=== PATIENT | female | born 1985 | race Caucasian/White ===

== ENCOUNTER 2019-07-06 10:31 | Emergency (ER) | payer OTHER, SELFPAY ==
[2019-07-06 11:24] LABS: Urine Blood NEGATIVE (NEG); Urine Glucose NEGATIVE (NEG); Urine Protein NEGATIVE (NEG)
[2019-07-06 11:46] LABS: Absolute Lymphocytes (CBC) 0.4 K/uL (0.7-4.9); Basophils % 0.3 % (0-1.3); Hematocrit 41.8 % (36.0-45.0); Lymphocytes % 3.9 % (15.3-44.8); MPV 10.3 fL (7.6-11.3); RBC Red Blood Cell Count 4.68 M/uL (3.86-4.86)
[2019-07-06 11:56] LABS: ALT/SGPT 18 U/L (12-78); AST/SGOT 9 U/L (15-37); Albumin 3.8 g/dL (3.4-5.0); Alkaline Phosphatase 81 U/L (45-117); BUN Blood Urea Nitrogen 16 mg/dL (7-18); Bicarbonate 25 mmol/L (21-32); Bilirubin Total 0.8 mg/dL (0.2-1.0); Glucose Level 100 mg/dL (74-106); Lipase 67 U/L (73-393); Potassium 3.8 mmol/L (3.5-5.1); Protein, Total 7.4 g/dL (6.4-8.2); Sodium Level 138 mmol/L (136-145)
[2019-07-06 12:01] LABS: Urine Bacteria 20-50 /HPF (<20); Urine Culture Reflex Order REFLEXED; Urine RBC NONE SEEN /HPF (NONE SEEN)
--- NOTE | 2019-07-06 12:06 | RAD REPORT ---
EXAM DESCRIPTION: US - Abdomen Exam Limited - 07/06/2019 11:57 am CLINICAL HISTORY: RUQ pain COMPARISON: No comparisons FINDINGS: The gallbladder demonstrates no gallstones. No pericholecystic fluid or gallbladder wall t hickening. The common bile duct is normal measuring 3 mm. The liver demonstrates no findings of intrahepatic biliary dilatation. IMPRESSION: Unremarkable examination.
--- NOTE | 2019-07-06 12:24 | ER ---
Nurse's Notes [facility] Name: Kristyn Michael Age: 34 yrs Sex: Female : 1985 Arrival Date: 07/06/2019 Time: 10:33 Bed 8 Private MD: Diagnosis: Acute cystitis without hematuria;Unspecified abdominal pain Presentation: 07/06 10:37 Risk Assessment: Do you want to hurt yourself or someone else? Patient reports no tw2 desire to harm self or others. Care prior to arrival: None. 10:42 Transition of care: patient was not received from another setting of care. Onset of tw2 symptoms was July 06, 2019. Initial Sepsis Screen: Does the patient meet any 2 criteria? No. Patient's initial sepsis screen is negative. Does the patient have a suspected source of infection? No. Patient's initial sepsis screen is negative. 10:42 Method Of Arrival: Ambulatory tw2 10:43 Presenting complaint: Patient states: upper abd pain, nausea, loose stool started this iw morning at 0400, no vomiting. 10:43 Acuity: YASMANI 3 iw Triage Assessment: 10:42 General: Appears in no apparent distress. Behavior is calm, cooperative, appropriate tw2 for age. Pain: Complains of pain in abdomen. GI: Reports lower abdominal pain, upper abdominal pain. CLINICAL SYSTEMS ANALYST: 10:44 LMP N/A - control method iw Historical: - Allergies: 10:43 No Known Allergies; tw2 - Home Meds: 10:44 fluoxetine 10 mg Oral tab once daily [Active]; iw - PMHx: 10:43 None; tw2 - PSHx: 10:43 ; tw2 - Immunization history:: Adult Immunizations. - Social history:: Smoking status: . - Ebola Screening: : Patient denies travel to an Ebola-affected area in the 21 days before illness onset. Screenin:36 Abuse screen: Denies threats or abuse. Nutritional screening: No deficits noted. tw2 Tuberculosis screening: No symptoms or risk factors identified. Fall Risk None identified. Assessment: 10:45 General: Appears in no apparent distress. Behavior is calm, cooperative, appropriate tw2 for age. Pain: Complains of pain in abdomen. Neuro: Level of Consciousness is awake, alert, obeys commands, Oriented to person, place, time, situation. Cardiovascular: Heart tones S1 S2 Patient's skin is warm and dry. Respiratory: Airway is patent Respiratory effort is even, unlabored, Respiratory pattern is regular, symmetrical, Breath sounds are clear bilaterally. GI: Abdomen is round Bowel sounds present X 4 quads. Abd is soft X 4 quads Reports lower abdominal pain, upper abdominal pain, diarrhea, nausea. : No signs and/or symptoms were reported regarding the genitourinary system. EENT: No signs and/or symptoms were reported regarding the EENT system. Derm: No signs and/or symptoms reported regarding the dermatologic system. Musculoskeletal: Range of motion: intact in all extremities. 12:21 Reassessment: Patient appears in no apparent distress at this time. No changes from tw2 previously documented assessment. Patient and/or family updated on plan of care and expected duration. Pain level reassessed. Patient is alert, oriented x 3, equal unlabored respirations, skin warm/dry/pink. Vital Signs: 10:44 BP 129 / 85; Pulse 88; Resp 16; Temp 99.1(O); Pulse Ox 98% on R/A; Weight 83.01 kg; iw Height 5 ft. 2 in. (157.48 cm); Pain 6/10; 12:22 BP 124 / 73; Pulse 88; Resp 17; Pulse Ox 96% on R/A; tw2 10:44 Body Mass Index 33.47 (83.01 kg, 157.48 cm) iw ED Course: 10:33 Patient arrived in ED. mr 10:34 Almas Lim MD is Attending Physician. ps1 10:36 Estelita Sanchez, RN is Primary Nurse. tw2 10:37 Bed in low position. Call light in reach. tw2 10:37 Arm band placed on. tw2 10:43 Triage completed. iw 11:30 Initial lab(s) drawn, by me, sent to lab. Inserted saline lock: 18 gauge in right bb antecubital area, using aseptic technique. Blood collected. 11:58 US Abdomen Limited In Process Unspecified. EDMS 12:32 No provider procedures requiring assistance completed. IV discontinued, intact, tw2 bleeding controlled, No redness/swelling at site. Pressure dressing applied. Administered Medications: No medications were administered Outcome: 12:24 Discharge ordered by . ps1 12:33 Discharged to home ambulatory, with significant other. tw2 12:33 Condition: stable 12:33 Discharge instructions given to patient, significant other, Instructed on discharge instructions, follow up and referral plans. medication usage, Demonstrated understanding of instructions, follow-up care, medications, Prescriptions given X 2. 12:33 Patient left the ED. tw2 Signatures: Dispatcher [employer] [facility] Nicki JimenesDolores, RN CASIE bb Zoey Ramos RN RN iw Estelita Sanchez RN RN tw2 Almas Lim MD MD ps1 Corrections: (The following items were deleted from the chart) 10:44 10:43 Home Meds: None; tw2 iw
--- NOTE | 2019-07-06 12:24 | EDPHYS ---
Physician Documentation [facility] Name: Kristyn Michael Age: 34 yrs Sex: Female : 1985 Arrival Date: 07/06/2019 Time: 10:33 Bed 8 Private MD: ED Physician Almas Lim HPI: 07/06 11:07 This 34 yrs old Female presents to ER via Ambulatory with complaints of ps1 Abdominal Pain. 11:07 Onset was this morning and associated with nausea and vomiting. Had loose stools but ps1 does not attest to diarrhea. States her pain is localized to epigastrium and right upper quadrant. Never had pain like this before. Does not associate with food. No fever. Hx of abdominal surgery in past () remotely. Tolerating PO. . TRANSFORMATION ANALYST: 10:44 LMP N/A - control method iw Historical: - Allergies: 10:43 No Known Allergies; tw2 - Home Meds: 10:44 fluoxetine 10 mg Oral tab once daily [Active]; iw - PMHx: 10:43 None; tw2 - PSHx: 10:43 ; tw2 - Immunization history:: Adult Immunizations. - Social history:: Smoking status: . - Ebola Screening: : Patient denies travel to an Ebola-affected area in the 21 days before illness onset. ROS: 11:07 Constitutional: Negative for fever, chills, and weight loss, Eyes: Negative for injury, ps1 pain, redness, and discharge, Cardiovascular: Negative for chest pain, palpitations, and edema, Respiratory: Negative for shortness of breath, cough, wheezing, and pleuritic chest pain, MS/Extremity: Negative for injury and deformity, Skin: Negative for injury, rash, and discoloration, Neuro: Negative for headache, weakness, numbness, tingling, and seizure. 11:07 Abdomen/GI: Positive for abdominal pain, nausea. Exam: 11:07 Constitutional: This is a well developed, well nourished patient who is awake, alert, ps1 and in no acute distress. Head/Face: Normocephalic, atraumatic. Eyes: Pupils equal round and reactive to light, extra-ocular motions intact. Lids and lashes normal. Conjunctiva and sclera are non-icteric and not injected. Chest/axilla: Normal chest wall appearance and motion. Nontender with no deformity. No lesions are appreciated. Cardiovascular: Regular rate and rhythm. No gallops, murmurs, or rubs. Normal PMI, no JVD. No pulse deficits. Respiratory: Lungs have equal breath sounds bilaterally, clear to auscultation and percussion. No rales, rhonchi or wheezes noted. No increased work of breathing, no retractions or nasal flaring. MS/ Extremity: Pulses equal, no cyanosis. Neurovascular intact. Full, normal range of motion. Neuro: Awake and alert, GCS 15, oriented to person, place, time, and situation. Cranial nerves II-XII grossly intact. Sensory grossly intact. Psych: Awake, alert, with orientation to person, place and time. Behavior, mood, and affect are within normal limits. 11:07 Abdomen/GI: Inspection: abdomen appears normal, Bowel sounds: normal, Palpation: soft, mild abdominal tenderness, in the epigastric area and right upper quadrant, Indicators: McBurney's point is not tender, Chi's sign is negative, Rovsing's sign is negative. Vital Signs: 10:44 BP 129 / 85; Pulse 88; Resp 16; Temp 99.1(O); Pulse Ox 98% on R/A; Weight 83.01 kg; iw Height 5 ft. 2 in. (157.48 cm); Pain 6/10; 12:22 BP 124 / 73; Pulse 88; Resp 17; Pulse Ox 96% on R/A; tw2 10:44 Body Mass Index 33.47 (83.01 kg, 157.48 cm) iw MDM: 11:05 Patient medically screened. ps1 12:22 Differential diagnosis: appendicitis, bowel obstruction, cholecystitis, Cholelithiasis, ps1 gastritis, urinary tract infection. Data reviewed: vital signs, nurses notes, lab test result(s), radiologic studies, ultrasound. Counseling: I had a detailed discussion with the patient and/or guardian regarding: the historical points, exam findings, and any diagnostic results supporting the discharge/admit diagnosis, lab results, radiology results, the need for outpatient follow up, to return to the emergency department if symptoms worsen or persist or if there are any questions or concerns that arise at home. 07/06 10:58 Order name: Urine Dipstick--Ancillary (enter results); Complete Time: 11:31 bd 07/06 10:58 Order name: Urine --Ancillary (enter results); Complete Time: 11:31 bd 07/06 11:06 Order name: CBC with Diff ps1 07/06 12:21 Interpretation: Abnormal: [place]% 91.0. ps1 07/06 11:06 Order name: CMP; Complete Time: 11:58 ps1 07/06 11:06 Order name: Lipase; Complete Time: 11:58 [facility] 07/06 11:31 Order name: Urine Microscopic Only; Complete Time: 12:20 ps1 07/06 12:20 Interpretation: Abnormal: UWBC 10-20; UBACT 20-50. ps1 07/06 10:53 Order name: Urine Dipstick-Ancillary (obtain specimen); Complete Time: 10:53 tw2 07/06 10:54 Order name: Urine Test (obtain specimen); Complete Time: 10:54 tw2 07/06 11:06 Order name: US Abdomen Limited; Complete Time: 12:20 [facility] 07/06 11:11 Order name: IV Start; Complete Time: 11:30 tw2 07/06 12:03 Order name: Urine Culture EDMS Administered Medications: No medications were administered Disposition: 07/06/19 12:24 Discharged to Home. Impression: Acute cystitis without hematuria, Unspecified abdominal pain. - Condition is Stable. - Discharge Instructions: Abdominal Pain, Adult, Urinary Tract Infection, Adult. - Prescriptions for Keflex 500 mg Oral Capsule - take 1 capsule by ORAL route every 8 hours for 5 days; 15 capsule. Zofran 4 mg Oral Tablet - take 1 tablet by ORAL route every 12 hours As needed; 20 tablet. - Work release form, Family Work Release, Medication Reconciliation Form, Thank You Letter, Antibiotic Education, Prescription Opioid Use form. - Follow up: Private Physician; When: As needed; Reason: Further diagnostic work-up, Recheck today's complaints, Continuance of care, Re-evaluation by your physician. Follow up: Emergency Department; When: As needed; Reason: Fever > 102 F, Worsening of condition. - Problem is new. - Symptoms have improved. Signatures: Dispatcher [employer] EDMS Zoye Ramos RN RN iw Estelita Sanchez RN RN tw2 Almas Lim MD MD ps1 Corrections: (The following items were deleted from the chart) 10:44 10:43 Home Meds: None; tw2 iw 12:20 12:20 Abnormal: UWBC 10-20. ps1 ps1 12:33 12:24 07/06/2019 12:24 Discharged to Home. Impression: Acute cystitis without tw2 hematuria; Unspecified abdominal pain. Condition is Stable. Forms are Work release form, Family Work Release, Medication Reconciliation Form, Thank You Letter, Antibiotic Education, Prescription Opioid Use. Follow up: Private Physician; When: As needed; Reason: Further diagnostic work-up, Recheck today's complaints, Continuance of care, Re-evaluation by your physician. Follow up: Emergency Department; When: As needed; Reason: Fever > 102 F, Worsening of condition. Problem is new. Symptoms have improved. ps1
[2019-07-06 12:52] LABS: Blood Morphology Comment NOT SEEN (NOT SEEN); Platelet Estimate ADEQ; Platelets, Giant FEW
[2019-07-06 19:47] VITALS: TEMP 99.1
[2019-07-06 19:49] VITALS: BP 124/73; O2SAT 96
== END 2019-07-06 12:33 | disposition home or self-care (01) ==
LOC: ER 10:31
DX: N30.00 Acute cystitis without hematuria (principal)
CPT/HCPCS: 36415; 76705; 80053; 81003; 81015; 81025; 83690; 85025; 87086; 87088; 99284